=== PATIENT | female | born 1970 | race Asian ===

== ENCOUNTER 2020-03-07 01:12 | Emergency (ER) | payer MEDICARE, OTHER ==
[~2020-03-07] VITALS: Ht 154.9 cm; Wt 54.0 kg
[~2020-03-07 01:12] MED LIST: ALBUTEROL1.25 MG/3 HHN; AMBIEN5 MG PO; ARMOUR THYROID30 MG PO; ATI1 PO; ATIVAN1 MG PO; BUS10 PO; BUSPIRONE HCL15 MG PO; CATAPRES0.1 MG PO; CLONAZEPAM1 MG PO; COL100 PO; COLACE100 MG PO; ECO81 PO; ENALAPRIL MALEA20 MG PO; FLAX SEED POWDER; GEMFIBROZIL600 MG PO; KLO0.5 PO; LAM25 PO; LATUDA80 M1 PO; LOP600 PO; METP PO; MIRALAX17 GM/Dose PO; MIRUD PO; MOM PO; MP PO; PEPCID20 MG PO; PREVACID SOLUTA15 MG PO; PREVACID15 MG PO; PRILOSEC20 MG PO; SALINE SOLUTION3 M1 OU; SERO100 PO; SEROQUEL100 MG PO; TRILEPTAL300 MG PO; TRILEPTAL600 MG PO; TYLENOL PO; V10 PO; VIS25 PO; XANAX1 MG PO; [UNRECOGNIZED DRUG - OTHER] PO; [UNRECOGNIZED DRUG - OTHER] PO; [UNRECOGNIZED DRUG - OTHER] PO; [UNRECOGNIZED DRUG - OTHER] PO; [UNRECOGNIZED DRUG - OTHER] PO; [UNRECOGNIZED DRUG - OTHER] TOP
[2020-03-07 01:21] VITALS: Ht 154.9 cm; Wt 54.0 kg
[2020-03-07 02:45] LABS: BASOPHIL % 0.3 % (0-2); PLATELET COUNT 333 x10^3mcL (130-400); RED CELL DISTRIBUTION WIDTH 12.7 % (11.5-14.5)
[2020-03-07 02:46] LABS: CALCIUM 9.2 mg/dL (8.5-10.1); CARBON DIOXIDE 27.3 mmol/L (21-32); CHLORIDE SERUM 96 mmol/L (98-107); CREATININE SERUM 0.6 mg/dL (0.6-1.0); GFR1 > 60 mL/min; GLUCOSE SERUM 120 mg/dL (74-106); POTASSIUM SERUM 3.5 mmol/L (3.5-5.1); SODIUM SERUM 133 mmol/L (136-145)
[2020-03-07 02:50] LABS: ALBUMIN 4.2 g/dL (3.4-5.0); ALKALINE PHOSPHATASE 55 U/L (46-116); ALT/SGPT 26 U/L (14-59); AMYLASE 53 U/L (25-115); AST/SGOT 17 U/L (15-37); BILIRUBIN TOTAL 0.35 mg/dL (0.20-1.00); LIPASE 153 IU/L (73-393); TOTAL PROTEIN, SERUM 7.4 g/dL (6.4-8.2)
[2020-03-07 03:47] VITALS: BP 130/92
== END 2020-03-07 03:48 | disposition home or self-care (01) ==
LOC: ED 01:12
PROVIDERS: Emergency Medicine
DX: K59.03 Drug induced constipation (principal); T40.605A Adverse effect of unspecified narcotics, initial encounter; J45.909 Unspecified asthma, uncomplicated; I10 Essential (primary) hypertension; E11.9 Type 2 diabetes mellitus without complications; Z90.710 Acquired absence of both cervix and uterus; Z88.5 Allergy status to narcotic agent; K21.9 Gastro-esophageal reflux disease without esophagitis; Y92.89 Other specified places as the place of occurrence of the external cause
CPT/HCPCS: J1885; Q0092